=== PATIENT | male | born 1955 | race African-American/Black ===

== ENCOUNTER 2017-08-12 22:37 | Emergency (ER) | payer MEDICAID ==
[~2017-08-12 22:37] MED LIST: AMIT25 PO; ASPI81CH38 CHEW; ATOR40TA PO; CEPH500 PO; COLL30OI3 TOP; DAKINSHST TOPICAL; DOCU100T9 PO; ERGO50000 PO; GABA600T PO; HYDR12.56 PO; LISI10 PO; MVI PO; NORC10TA2 PO
[2017-08-12 23:02] VITALS: BP 174/76; PULSE 77; RESP 20; TEMP 98.6; O2SAT 96
[2017-08-12] MEDS ORDERED: ACETAMINOPHEN 500 MG CPLT PO ONE (23:30)
--- NOTE | 2017-08-12 23:56 | PD ---
HPI Chief Complaint: Headache Time Seen by Provider: 23:21 Travel History International Travel<30 days: No Contact w/Intl Traveler<30days: No Traveled to known affect area: No History of Present Illness HPI So 61-year-old man who presents to the emergency department complaining of headache. States he fell out of his wheelchair at the beginning a month. No LOC. States since then he said worsening headache. Headache was especially bad today and so his mom called the ambulance. Little bit of blurry vision in the right eye. Headaches on the right side. He is status post left AKA. He is also still healing from previous perineal infection. History Past Medical History Narrative Medical Left [id number] of dictation Wheelchair-bound Status post Kait's gangrene with chronic wound Hypertension Tetanus Vaccination: Unknown Influenza Vaccination: No PNEUMOCCOCAL Vaccine (Year): 3 Social History Alcohol Use: No Tobacco Use: No Allergies-Medications (Allergen,Severity, Reaction): Coded Allergies: *MDRO Multi-Drug Resistant Organism (Verified Adverse Reaction, Unknown, ) MRSA PCR Screen POSITIVE - 01/12/16 MRSA (buttock wound) - 12/2015 Reported Meds & Prescriptions Reported Meds & Active Scripts Active Active Prescriptions or Reported Medications Unobtainable Review of Systems Except as stated in HPI: all other systems reviewed are Neg Physical Exam Narrative GENERAL: Generally well-appearing, no acute distress. SKIN: Focused skin assessment warm/dry. HEAD: Atraumatic. Normocephalic. EYES: Pupils equal and round. No scleral icterus. No injection or drainage. ENT: No nasal bleeding or discharge. Mucous membranes pink and moist. NECK: Trachea midline. No JVD. Moves neck freely. No evidence of trauma. No meningismus. CARDIOVASCULAR: Regular rate and rhythm. No murmur appreciated. RESPIRATORY: No accessory muscle use. Clear to auscultation. Breath sounds equal bilaterally. GASTROINTESTINAL: Abdomen soft, non-tender, nondistended. Hepatic and splenic margins not palpable. MUSCULOSKELETAL: Status post left AKA Data Data Last Documented VS Vital Signs Date Time Temp Pulse Resp B/P (MAP) Pulse Ox O2 Delivery O2 Flow Rate FiO2 08/13/17 00:07 70 19 171/77 (108) 97 Room Air 08/12/17 23:[address] Brain W/O Iv Contrast(Rout) (08/12/17 ) Acetaminophen (Tylenol) (08/12/17 23:30) MDM Medical Decision Making Medical Screen Exam Complete: Yes Emergency Medical Condition: Yes Interpretation(s) CT head: Negative. Differential Diagnosis Head injury, skull fracture, subdural, concussion, other Narrative Course Medical decision making INITIAL: 61-year-old man presents emergent department with headache after he fell and hit his head weeks ago. We'll check CT head. Acetaminophen for pain. Outpatient follow-up. Diagnosis Primary Impression: Headache Additional Instructions: Follow-up with your primary doctor if the headaches continue. Return to the emergency department for any new or worsening symptoms. Scripts Unable to Obtain Active Prescriptions or Reported Meds Disposition: 01 DISCHARGE HOME Condition: Stable Bhavik Brown MD Aug 12, 2017 23:56
[2017-08-13 00:07] VITALS: BP 171/77; PULSE 70; RESP 19; O2SAT 97
--- NOTE | 2017-08-13 00:31 | RADRPT ---
EXAM DATE/TIME: 08/13/2017 00:09 [facility] COMPARISON: No previous studies available for comparison. INDICATIONS : Headache X one month. RADIATION DOSE: 56.35 CTDIvol (mGy) MEDICAL HISTORY : Cardiovascular disease. Hypertension. polysubstance abuse SURGICAL HISTORY : Appendectomy. ENCOUNTER: Initial ACUITY: 1 month PAIN SCALE: 6/10 LOCATION: cranial TECHNIQUE: Multiple contiguous axial images were obtained of the head. Using automated exposure control and adj ustment of the mA and/or kV according to patient size, radiation dose was kept as low as reasonably a chievable to obtain optimal diagnostic quality images. DICOM format image data is available electro nically for review and comparison. FINDINGS: CEREBRUM: The ventricles are normal for age. No evidence of midline shift, mass lesion, hemorrhage or acute in farction. No extra-axial fluid collections are seen. POSTERIOR FOSSA: The cerebellum and brainstem are intact. The 4th ventricle is midline. The cerebellopontine angle i s unremarkable. EXTRACRANIAL: The visualized portion of the orbits is intact. SKULL: The calvaria is intact. No evidence of skull fracture. CONCLUSION: No acute findings in the brain. Raghav Stephen MD on August 13, 2017 at 0:29 Board Certified Radiologist. This report was verified electronically.
== END 2017-08-13 01:12 | disposition home or self-care (01) ==
LOC: NEPC 22:37
DX: R51 Headache (principal); H53.8 Other visual disturbances; I10 Essential (primary) hypertension; Z89.612 Acquired absence of left leg above knee; Z99.3 Dependence on wheelchair; Z87.2 Personal history of diseases of the skin and subcutaneous tissue; W05.0XXA Fall from non-moving wheelchair, initial encounter
CPT/HCPCS: 70450; 99284

== ENCOUNTER 2018-01-04 14:39 | Emergency (ER) | payer MEDICAID ==
[~2018-01-04] VITALS: Ht 177.8 cm; Wt 68.0 kg
[2018-01-04 14:41] VITALS: BP 187/90; PULSE 78; RESP 16; TEMP 98.4; O2SAT 98
[2018-01-04 16:14] LABS: AUTOMATED NEUTROPHIL # 9.1 TH/MM3 (1.8-7.7); BASOPHIL # 0.1 TH/MM3 (0-0.2); BASOPHIL % 0.6 % (0.0-2.0); EOSINOPHIL # 0.3 TH/MM3 (0-0.4); EOSINOPHIL % 2.4 % (0.0-4.0); HEMATOCRIT 36.9 % (39.0-51.0); HEMOGLOBIN 12.5 GM/DL (13.0-17.0); LYMPH % 15.6 % (9.0-44.0); LYMPHOCYTE # 1.9 TH/MM3 (1.0-4.8); MEAN CELL VOLUME 86.3 FL (80.0-100.0); MEAN CORPUSCULAR HEMOGLOBIN 29.2 PG (27.0-34.0); MEAN CORPUSCULAR HGB CONC 33.8 % (32.0-36.0); MEAN PLATELET VOLUME 7.8 FL (7.0-11.0); MONO % 6.9 % (0.0-8.0); MONOCYTE # 0.8 TH/MM3 (0-0.9); NEUT % 74.5 % (16.0-70.0); PLATELET COUNT 451 TH/MM3 (150-450); RED BLOOD COUNT 4.28 MIL/MM3 (4.50-5.90); RED CELL DISTRIBUTION WIDTH 13.4 % (11.6-17.2); WHITE BLOOD COUNT 12.2 TH/MM3 (4.0-11.0)
--- NOTE | 2018-01-04 16:18 | RADRPT ---
EXAM DATE/TIME: 01/04/2018 15:10 [facility] COMPARISON: No previous studies available for comparison. INDICATIONS : Chest pain. MEDICAL HISTORY : Cardiovascular disease. Hypertension. SURGICAL HISTORY : None. ENCOUNTER: Initial ACUITY: 4 - 6 days PAIN SCORE: 9/10 LOCATION: Left chest. FINDINGS: Bibasilar airspace disease characteristic of atelectasis is noted bilaterally. There is no evidence o f segmental or lobar consolidative airspace disease. Heart is normal in size. No acute bony changes are seen. CONCLUSION: Bibasilar air space disease most characteristic of atelectasis. No other acute findings. John Eugene MD on January 04, 2018 at 16:15 Board Certified Radiologist. This report was verified electronically.
[2018-01-04 16:27] LABS: BICARBONATE 24.2 MEQ/L (21.0-32.0); BLOOD UREA NITROGEN 7 MG/DL (7-18); CALCIUM 8.9 MG/DL (8.5-10.1); CHLORIDE 103 MEQ/L (98-107); CREATININE 0.83 MG/DL (0.60-1.30); GLOMERULAR FILTRATION RATE 115 ML/MIN (>89); GLUCOSE,RANDOM 75 MG/DL (74-106); SODIUM (NA) 135 MEQ/L (136-145)
[2018-01-04 16:29] LABS: TROPONIN I LESS THAN 0.02 NG/ML (0.02-0.05)
[2018-01-04] MEDS ORDERED: ASPIRIN 81 MG CHEW TAB PO ONE (16:30)
[2018-01-04] MEDS ORDERED: SODIUM CHLORIDE 0.9% FLUSH 10 ML FLUSH IVF PRN (16:30)
--- NOTE | 2018-01-04 16:49 | RADRPT ---
EXAM DATE/TIME: 01/04/2018 16:34 [facility] COMPARISON: CHEST PA & LAT, January 04, 2018, 15:10. CHEST SINGLE AP, January 18, 2016 , 10:15. INDICATIONS : Chest pain MEDICAL HISTORY : Cardiovascular disease. Hypertension SURGICAL HISTORY : None. ENCOUNTER: Initial ACUITY: 3 days PAIN SCORE: 8/10 LOCATION: chest FINDINGS: Mild linear parenchymal opacities in the lung bases, improved on the right. Cardiomediastinal contour s are within normal limits. Bony thorax is intact. CONCLUSION: No acute abnormality or interval change. Robert Mojica MD on January 04, 2018 at 16:46 Board Certified Radiologist. This report was verified electronically.
[2018-01-04] MEDS ORDERED: KETOROLAC TROMETHAMINE 30 MG/ML (IVP) VIAL IV PUSH ONE (17:15)
[2018-01-04] MEDS ORDERED: CYCLOBENZAPRINE HCL 10 MG TAB PO ONE (17:15)
[2018-01-04 17:21] VITALS: O2SAT 99
[2018-01-04 17:53] LABS: INTERNATIONAL NORMALIZED RATIO 1.1 RATIO; PROTHROMBIN TIME - PATIENT 11.2 SEC (9.8-11.6)
[2018-01-04 18:00] VITALS: BP 163/81; PULSE 61; O2SAT 100
--- NOTE | 2018-01-04 19:02 | PD ---
HPI Chief Complaint: Chest Pain Time Seen by Provider: 16:22 Travel History International Travel<30 days: No Contact w/Intl Traveler<30days: No Traveled to known affect area: No History of Present Illness HPI 62-year-old male with PMH of hypertension, chronic wound right groin, left AKA presents to the ED for evaluation of 3 day history of chest pain. Gradual onset , migrating from the right side of the chest to the left side, now located across the left chest and into the left axilla. Pain is worsened by movements and deep breathing. Patient denies associated palpitations, shortness of breath , nausea or vomiting. He does identify no acute injury or overuse. He states that he "thought I slept wrong." He is a nonsmoker. Denies history of diabetes. Unsure of any familial cardiac history. PFSH Past Medical History Arthritis: No Asthma: No Autoimmune Disease: No Blood Disorders: No Anxiety: No Depression: No Heart Rhythm Problems: No Cancer: No Cardiovascular Problems: Yes (POOR PERIPHERAL PERFUSION) High Cholesterol: Yes Chemotherapy: No Chest Pain: Yes Congestive Heart Failure: No COPD: No Cerebrovascular Accident: No Diabetes: No Diminished Hearing: No Endocrine: No Gastrointestinal Disorders: Yes GERD: No Genitourinary: No Hiatal Hernia: No Hypertension: Yes Immune Disorder: No Kidney Stones: No Musculoskeletal: Yes Neurologic: Yes (CHRONIC BACK PAIN S/P DEGENERATIVE DISC DISEASE) Psychiatric: No Reproductive: No Respiratory: No Integumentary: Yes (RECURRENT INFECTION/MRSA, FOURNIERS GANGRENE) Migraines: No Radiation Therapy: No Renal Failure: No Seizures: No Sickle Cell Disease: No Sleep Apnea: No Thyroid Disease: No Ulcer: No PNEUMOCCOCAL Vaccine (Year): 3 Past Surgical History Abdominal Surgery: Yes (BOWEL RESECTION S/P SBO) AICD: No Appendectomy: Yes Arteriovenous Shunt: No Ear Surgery: No Endocrine Surgery: No Eye Surgery: No Genitourinary Surgery: No Gynecologic Surgery: No Insulin Pump: No Joint Replacement: No Neurologic Surgery: Yes (HEAD TRAUMA) Oral Surgery: No Pacemaker: No Thoracic Surgery: No Tonsillectomy: Yes Other Surgery: Yes (SCALP/CRANIUM INSICION- PT UNSURE WHAT) Social History Alcohol Use: No Tobacco Use: No Substance Use: No (HX CRACK, METH) Allergies-Medications (Allergen,Severity, Reaction): Coded Allergies: *MDRO Multi-Drug Resistant Organism (Verified Adverse Reaction, Unknown, ) MRSA PCR Screen POSITIVE - 01/12/16 MRSA (buttock wound) - 12/2015 Reported Meds & Prescriptions Reported Meds & Active Scripts Active Flexeril (Cyclobenzaprine HCl) 10 Mg Tab 10 Mg PO TID Naprosyn (Naproxen) 500 Mg Tab 500 Mg PO BID Review of Systems Except as stated in HPI: all other systems reviewed are Neg Physical Exam Narrative GENERAL: Well-nourished, well-developed male in no acute distress. SKIN: Focused skin assessment warm/dry. HEAD: Normocephalic. EYES: No scleral icterus. No injection or drainage. NECK: Supple, trachea midline. No JVD or lymphadenopathy. CARDIOVASCULAR: Regular rate and rhythm without murmurs, gallops, or rubs. CHEST: Tender to palpation over the mid sternum, left pectoralis and into the left axilla. No deformity or crepitus noted. No retractions or use of accessory muscles. RESPIRATORY: Breath sounds equal bilaterally. No accessory muscle use. GASTROINTESTINAL: Abdomen soft, non-tender, nondistended. MUSCULOSKELETAL: No cyanosis, or edema. BACK: Nontender without obvious deformity. No CVA tenderness. Data Data Last Documented VS Vital Signs Date Time Temp Pulse Resp B/P (MAP) Pulse Ox O2 Delivery O2 Flow Rate FiO2 01/04/18 19:12 01/04/18 18:00 61 100 Room Air 01/04/18 14:41 98.4 16 Orders Orders Electrocardiogram (01/04/18 15:03) Complete Blood Count With Diff (01/04/18 15:03) Basic Metabolic Panel (Bmp) (01/04/18 15:03) Ckmb (Isoenzyme) Profile (01/04/18 15:03) Troponin I (01/04/18 15:03) Chest, Pa & Lat (01/04/18 15:03) Magnesium (Mg) (01/04/18 16:24) Prothrombin Time / Inr (Pt) (01/04/18 16:24) Act Partial Throm Time (Ptt) (01/04/18 16:24) Chest, Single Ap (01/04/18 16:24) Ecg Monitoring (01/04/18 16:24) Bilateral Bp Monitoring (01/04/18 16:24) Iv Access Insert/Monitor (01/04/18 16:24) Oximetry (01/04/18 16:24) Aspirin Chew (Aspirin Chew) (01/04/18 16:30) Sodium Chloride 0.9% Flush (Ns Flush) (01/04/18 16:30) CKMB (01/04/18 15:26) CKMB% (01/04/18 15:26) Ketorolac Inj (Toradol Inj) (01/04/18 17:15) Cyclobenzaprine (Flexeril) (01/04/18 17:15) Ed Discharge Order (01/04/18 19:08) Labs Laboratory Tests Test 01/04/18 15:25 01/04/18 15:26 01/04/18 17:20 White Blood Count 12.2 TH/MM3 Red Blood Count 4.28 MIL/MM3 Hemoglobin 12.5 GM/DL Hematocrit 36.9 % Mean Corpuscular Volume 86.3 FL Mean Corpuscular Hemoglobin 29.2 PG Mean Corpuscular Hemoglobin Concent 33.8 % Red Cell Distribution Width 13.4 % Platelet Count 451 TH/MM3 Mean Platelet Volume 7.8 FL Neutrophils (%) (Auto) 74.5 % Lymphocytes (%) (Auto) 15.6 % Monocytes (%) (Auto) 6.9 % Eosinophils (%) (Auto) 2.4 % Basophils (%) (Auto) 0.6 % Neutrophils # (Auto) 9.1 TH/MM3 Lymphocytes # (Auto) 1.9 TH/MM3 Monocytes # (Auto) 0.8 TH/MM3 Eosinophils # (Auto) 0.3 TH/MM3 Basophils # (Auto) 0.1 TH/MM3 CBC Comment DIFF FINAL Differential Comment Blood Urea Nitrogen 7 MG/DL Creatinine 0.83 MG/DL Random Glucose 75 MG/DL Calcium Level 8.9 MG/DL Sodium Level 135 MEQ/L Potassium Level 3.8 MEQ/L Chloride Level 103 MEQ/L Carbon Dioxide Level 24.2 MEQ/L Anion Gap 8 MEQ/L Estimat Glomerular Filtration Rate 115 ML/MIN Magnesium Level 2.0 MG/DL Total Creatine Kinase 273 U/L Creatine Kinase MB 1.6 NG/ML Troponin I LESS THAN 0.02 NG/ML Prothrombin Time 11.2 SEC Prothromb Time International Ratio 1.1 RATIO Activated Partial Thromboplast Time 28.4 SEC MDM Medical Decision Making Medical Screen Exam Complete: Yes Emergency Medical Condition: Yes Differential Diagnosis Musculoskeletal pain versus muscle strain versus muscle spasm versus less likely ACS versus less likely angina versus other Narrative Course 62-year-old male with PMH of hypertension, chronic wound right groin, left AKA presents to the ED for evaluation of 3 day history of chest pain. Gradual onset , migrating from the right side of the chest to the left side, now located across the left chest and into the left axilla. Pain is worsened by movements and deep breathing. Patient denies associated palpitations, shortness of breath , nausea or vomiting. He does identify no acute injury or overuse. He states that he "thought I slept wrong." He is a nonsmoker. Denies history of diabetes. Unsure of any familial cardiac history. Vitals reviewed. On exam this is a nontoxic-appearing black male in no acute distress. He does have tenderness over the midsternum, body of the pectoralis on the left side and into the left axilla. He was administered aspirin, Toradol and Flexeril. EKG rate 65, sinus rhythm with first-degree AV block. AR 227, QRS 86, QTC 400 ms. Normal axis. No acute ST changes. Reviewed by Dr. Shelton. CXR: Bibasilar airspace disease most characteristic of atelectasis. No other acute findings. Cardiac enzymes negative 1. CBC: Mild elevation of the white count, likely stress reaction. Hemoglobin 12.5 , chronic per record review. Coags: INR 1.1. Chemistry unremarkable. On recheck patient reports improvement of his pain. He is prescribed a short course of anti-inflammatories and muscle relaxants, instructed to use RICE therapy, follow up with the primary care provider, return for worsening symptoms. He indicated understanding of the instructions. He is stable and discharged home. Diagnosis Primary Impression: Musculoskeletal chest pain Additional Impression: Left anterior shoulder pain Referrals: Primary Care Physician Patient Instructions: General Instructions, Musculoskeletal Pain (ED) Additional Instructions: Rest, hydrate Return to normal, gentle activities as tolerated. Ice or warm compresses applied to areas of pain 10-15 minutes at a time a few times a day may help to reduce her symptoms. Take anti-inflammatories and muscle relaxants as prescribed. Follow-up with the primary care provider. Return to the ED for worsening symptoms or any urgent or emergent medical condition. Med/Other Pt SpecificInfo: Prescription(s) given Scripts Cyclobenzaprine (Flexeril) 10 Mg Tab 10 MG PO TID for Muscle Spasm, #15 TAB 0 Refills Prov: Cameron Shelton MD 01/04/18 Naproxen (Naprosyn) 500 Mg Tab 500 MG PO BID, #10 TAB 0 Refills Prov: Cameron Shelton MD 01/04/18 Disposition: 01 DISCHARGE HOME Condition: Amanda Poole Jan 04, 2018 19:01
[2018-01-04] MEDS ORDERED: CYCL10TA PO (19:07)
[2018-01-04] MEDS ORDERED: NAPR500 PO (19:07)
--- NOTE | 2018-01-06 00:48 | EKG ---
Date Performed: 01/04/2018 Time Performed: 17:00:41 PTAGE: 62 years EKG: Sinus rhythm WITH FIRST DEGREE AV BLOCK MINIMAL VOLTAGE CRITERIA FOR LVH, CONSIDER NORMAL VARIANT EARLY REPOLARIZ ATION ABNORMAL ECG PREVIOUS TRACING : 01/12/2016 05.37 Since the prior tracing, there has been no significant lima DOCTOR: [place] Interpretating Date/Time 01/06/2018 00:46:38
== END 2018-01-04 19:21 | disposition home or self-care (01) ==
LOC: NEPE 14:39
DX: R07.89 Other chest pain (principal); M25.512 Pain in left shoulder; I10 Essential (primary) hypertension; R94.31 Abnormal electrocardiogram [ECG] [EKG]; Z89.612 Acquired absence of left leg above knee
CPT/HCPCS: 71045; 71046; 80048; 82550; 82552; 83735; 84484; 85025; 85610; 85730; 93005; 96374; 99285; J1885